=== PATIENT | male | born 1985 | race Two or more races ===

== ENCOUNTER 2022-01-18 18:44 | Emergency (ER) | payer MEDICAID ==
[~2022-01-18] VITALS: Ht 165.1 cm; Wt 77.1 kg
[2022-01-18 18:46] VITALS: BP 130/80
[2022-01-18] MEDS ORDERED: HYDROcodone-ACET 10/325MG TAB PO ONE (21:15)
== END 2022-01-18 22:30 | disposition home or self-care (01) ==
LOC: ER 18:51
DX: S00.03XA Contusion of scalp, initial encounter (principal); H93.12 Tinnitus, left ear; V49.9XXA Car occupant (driver) (passenger) injured in unspecified traffic accident, initial encounter; Y93.89 Activity, other specified; Y92.410 Unspecified street and highway as the place of occurrence of the external cause; Y99.8 Other external cause status
CPT/HCPCS: 70450